=== PATIENT | male | born 2000 | race Two or more races ===

== ENCOUNTER 2020-02-18 22:24 | Emergency (ER) | payer SELFPAY ==
[~2020-02-18] VITALS: Ht 188 cm; Wt 107.5 kg
[2020-02-18 22:36] VITALS: BP 134/78
[2020-02-19 02:33] LABS: Urine Bacteria FEW /hpf (None Seen); Urine Blood Negative /uL (Negative); Urine Mucus FEW (None Seen); Urine WBC <1 /hpf (0 - 3)
[2020-02-19] MEDS ORDERED: methylPREDNISolone SOD SUCC 125 MG/2 ML VL IM ONE (02:45)
[2020-02-19] MEDS ORDERED: ONDANSETRON ODT 4 MG TAB PO ONE (03:00)
[2020-02-19 03:24] LABS: Alcohol, Urine < 3.0 mg/dL (0-10); Amphetamine Screen, Urine NEGATIVE (NEGATIVE); Barbiturate Scree,Urine NEGATIVE (NEGATIVE); Benzodiazephine Screen, Urine NEGATIVE (NEGATIVE); Cannabinoid Screen, Urine POSITIVE (NEGATIVE); Cocaine Screen, Urine NEGATIVE (NEGATIVE); Phencyclidine Screen, Urine NEGATIVE (NEGATIVE)
[2020-02-19 03:31] LABS: Opiate Scree,Urine NEGATIVE (NEGATIVE)
== END 2020-02-19 03:22 | disposition home or self-care (01) ==
LOC: ER 22:28
DX: F41.9 Anxiety disorder, unspecified (principal)
CPT/HCPCS: 80307; 81001; 96372; 99283; J2930; Q0162